=== PATIENT | male | born 1980 | race African-American/Black ===

== ENCOUNTER 2017-07-23 13:33 | Inpatient (IN) ==
[2017-07-23] MEDS ORDERED: DIPH/TET/ACEL PERT BOOSTER VACCINE 0.5 ML VIAL IM ONE ×2 (13:42→14:17)
[2017-07-23] MEDS ORDERED: HYDROmorphone 2 MG/1 ML VIAL IV STA (13:44)
[2017-07-23] MEDS ORDERED: ONDANSETRON 4 MG/2 ML VIAL IV STA (13:44)
[2017-07-23 14:07] LABS: Basophils # 0.1 10*3/uL (0.0-0.2); Basophils % 0.3 % (0.0-0.8); Eosinophils % 0.2 % (0.00-10.9); Hematocrit 42.9 VOL% (42.0-52.0); Immature Granulocytes % 0.5 %; Immature Granulocytes Absolute 0.07 #; Lymphocytes # 1.5 10*3/uL (1.4-4.0); Mean Corpuscular HGB Conc 32.6 GM/DL (32-36); Mean Corpuscular Hemoglobin 29 PG (27-34); Mean Corpuscular Volume 89.9 FL (87-102); Mean Platelet Volume 9.8 FL (9.6-12.0); Monocytes # 0.8 10*3/uL (0.11-0.8); Monocytes % 5.4 % (1.7-12.7); Neutrophils # 12.8 10*3/uL (1.4-7.4); Neutrophils % 83.6 % (38.7-73.9); Platelet Count 228 T/CUMM (130-400); Red Blood Count 4.77 MC/CUMM (3.8-5.5); Red Cell Distribution Width 12.7 % (9.3-17.3); White Blood Count 15.3 T/CUMM (4-12)
[2017-07-23] MEDS ORDERED: LACTATED RINGERS 1,000 ML IV ONE ×2 (14:15→19:02)
[2017-07-23 14:17] LABS: PT Patient Result 10.7 SECS; Partial Thromboplastin Time 23.5 SECS (0-40)
[2017-07-23] MEDS ORDERED: ONDANSETRON 4 MG/2 ML VIAL ONE ×2 (14:17→19:01)
[2017-07-23] MEDS ORDERED: HYDROmorphone 2 MG/1 ML VIAL ONE (14:17)
[2017-07-23] MEDS ORDERED: ceFAZolin 1,000 MG VIAL ONE ×3 (14:17→16:16)
[2017-07-23 14:25] LABS: Alanine Aminotransferase 19 U/L (16-61); Albumin 3.9 G/DL (3.4-5.0); Alkaline Phosphatase 56 U/L (45-117); Amylase 31 U/L (25-115); Aspartate Amino Transferase 17 U/L (0-37); Bilirubin,Total < 0.39 MG/DL (0.2-1.0); Blood Urea Nitrogen 13 MG/DL (7-18); Calcium 8.6 MG/DL (8.5-10.1); Glucose 128 MG/DL (74-106); Lactic Acid 1.9 MMOL/L (0.4-2.0); Osmolality,Calculated 280.4 MOS/KG (273-304); Potassium 3.4 MMOL/L (3.5-5.1); Sodium 140 MMOL/L (136-145); Total Protein 7.1 G/DL (6.4-8.3)
[2017-07-23 14:32] LABS: ABG Base Excess 3.2 MMOL/L (-2.5-2.5); ABG HCO3 27.2 MMOL/L (20-26); ABG Oxygen Saturation 96.3 % (95-100); ABG PCO2 50.6 MM HG (35-48); ABG PH 7.375 (7.35-7.45); ABG PO2 85.3 MM HG (80-95); ABG TCO2 25.5 MMOL/L (23-27)
[2017-07-23 14:39] LABS: Apearance,Urine CLEAR (Clear); Bacteria,Urine Occasional /HPF (Few); Bilirubin,Urine Negative (Negative); Blood, Urine Negative (Negative); Glucose,Urine (UA) Negative (Negative); Ketones,Urine 5 mg/dL (Negative); Mucus,Urine Occasional /LPF (Occasional); Nitrite,Urine Negative (Negative); Protein,Urine 30 MG/DL; RBC,Urine <1 /HPF (0-4); Sperm,Urine Occasional /HPF (Negative); Squamous Epithelial Cell,Urine Occasional /HPF (0-10); Urine Color Yellow (Yellow); Urine Specific Gravity 1.016 (1.001-1.035); Urine Urobilinogen < 2.0 EU/DL (0.2-1.0); WBC,Urine 1 /HPF (0-6)
[2017-07-23 15:32] LABS: Barbiturates Screen,Urine Negative (Negative); Benzodiazepines Screen,Urine Negative (Negative); Cannabinoid Screen,Urine Negative (Negative); Opiate Screen,Urine Negative (Negative); Phencyclidine Screen,Urine Negative (Negative)
[2017-07-23] MEDS ORDERED: BACITRACIN OINT 0.9 GM PACK TOP ONE ×2 (15:43→17:55)
[2017-07-23] MEDS ORDERED: MAGNESIUM HYDROXIDE SUSP 30 ML UDCUP PO PRN (16:36)
[2017-07-23] MEDS ORDERED: diphenhydrAMINE CAP 25 MG CAPSULE PO PRN (16:36)
[2017-07-23] MEDS ORDERED: MORPHINE 2 MG/1 ML SYRINGE IV PRN ×2 (16:36)
[2017-07-23] MEDS ORDERED: POTASSIUM CHLORIDE INJ 40 MEQ in DEXTROSE 5% LACTATED RINGERS 1,000 ML IV SCH (17:00)
[2017-07-23] MEDS ORDERED: LACTATED RINGERS 1,000 ML IV SCH (17:00)
[2017-07-23] MEDS ORDERED: PROPOFOL 200 MG/20 ML VIAL IV ONE (19:00)
[2017-07-23] MEDS ORDERED: ESMOLOL 100 MG/10 ML VIAL IV ONE (19:01)
[2017-07-23] MEDS ORDERED: NEOSTIGMINE 10 MG/10 ML VIAL ONE (19:01)
[2017-07-23] MEDS ORDERED: MIDAZOLAM 2 MG/2 ML VIAL ONE (19:01)
[2017-07-23] MEDS ORDERED: fentaNYL 100 MCG/2 ML VIAL ONE (19:01)
[2017-07-23] MEDS ORDERED: SEVOFLURANE 1 UNIT/15 MINUTE INH ONE (19:01)
[2017-07-23] MEDS ORDERED: GLYCOPYRROLATE 0.4 MG/2 ML VIAL ONE (19:01)
[2017-07-23] MEDS ORDERED: SUCCINYLCHOLINE 200 MG/10 ML VIAL ONE (19:01)
[2017-07-23] MEDS ORDERED: ROCURONIUM 100 MG/10 ML VIAL IV ONE (19:02)
[2017-07-23] MEDS: DOCUSATE SODIUM 100 MG CAPSULE PO SCH (21:55)
[2017-07-23] MEDS: ceFAZolin 2,000 MG in PREMIX 1 EACH IV SCH (21:55)
[2017-07-23] MEDS: DEXT 5% LACT RING KCL 20 MEQ 20 MEQ/1,000 ML BAG IV SCH (23:35)
[2017-07-24] MEDS: KETOROLAC 30 MG/1 ML VIAL IV SCH ×4 (02:51→10:34)
[2017-07-24] MEDS: ceFAZolin 2,000 MG in PREMIX 1 EACH IV SCH ×3 (04:23→20:19)
[2017-07-24 05:13] LABS: Basophils % 0.2 % (0.0-0.8); Hematocrit 35.5 VOL% (42.0-52.0); Hemoglobin 12.1 GM/DL (14.0-18.0); Immature Granulocytes % 0.2 %; Immature Granulocytes Absolute 0.02 #; Lymphocytes # 1.4 10*3/uL (1.4-4.0); Lymphocytes % 13.4 % (21.2-54.2); Mean Corpuscular HGB Conc 34.1 GM/DL (32-36); Mean Corpuscular Hemoglobin 30 PG (27-34); Mean Corpuscular Volume 86.8 FL (87-102); Mean Platelet Volume 9.7 FL (9.6-12.0); Monocytes # 1.1 10*3/uL (0.11-0.8); Neutrophils # 8.2 10*3/uL (1.4-7.4); Neutrophils % 76.2 % (38.7-73.9); Platelet Count 203 T/CUMM (130-400); Red Blood Count 4.09 MC/CUMM (3.8-5.5); Red Cell Distribution Width 12.8 % (9.3-17.3); White Blood Count 10.7 T/CUMM (4-12)
[2017-07-24 05:48] LABS: Osmolality,Calculated 278.4 MOS/KG (273-304); Potassium 3.9 MMOL/L (3.5-5.1)
[2017-07-24] MEDS: DEXT 5% LACT RING KCL 20 MEQ 20 MEQ/1,000 ML BAG IV SCH (08:24)
[2017-07-24] MEDS: DOCUSATE SODIUM 100 MG CAPSULE PO SCH ×2 (09:16→20:28)
[2017-07-24] MEDS: HALOPERIDOL 5 MG TABLET PO SCH ×2 (16:18→20:29)
[2017-07-24] MEDS: busPIRone 5 MG TABLET PO SCH ×2 (16:18→20:29)
[2017-07-24] MEDS ORDERED: ACETAMINOPHEN 325 MG TABLET PO PRN (16:38)
[2017-07-24] MEDS: risperiDONE 1 MG TABLET PO SCH (20:28)
[2017-07-24] MEDS: DIVALPROEX ER 250 MG TABLET PO SCH (20:28)
[2017-07-24] MEDS: PRAZOSIN 1 MG CAPSULE PO SCH (20:28)
[2017-07-24] MEDS: traZODone 50 MG TABLET PO SCH (20:29)
[2017-07-25 03:31] LABS: Basophils % 0.2 % (0.0-0.8); Eosinophils % 0.5 % (0.00-10.9); Hematocrit 31.4 VOL% (42.0-52.0); Hemoglobin 10.5 GM/DL (14.0-18.0); Immature Granulocytes % 0.4 %; Immature Granulocytes Absolute 0.03 #; Lymphocytes # 2.5 10*3/uL (1.4-4.0); Lymphocytes % 29.5 % (21.2-54.2); Mean Corpuscular HGB Conc 33.4 GM/DL (32-36); Mean Corpuscular Hemoglobin 29 PG (27-34); Monocytes # 0.7 10*3/uL (0.11-0.8); Monocytes % 8.8 % (1.7-12.7); Neutrophils # 5.1 10*3/uL (1.4-7.4); Neutrophils % 60.6 % (38.7-73.9); Platelet Count 165 T/CUMM (130-400); Red Blood Count 3.57 MC/CUMM (3.8-5.5); Red Cell Distribution Width 13.2 % (9.3-17.3); White Blood Count 8.4 T/CUMM (4-12)
[2017-07-25] MEDS: ceFAZolin 2,000 MG in PREMIX 1 EACH IV SCH ×2 (04:30→14:40)
[2017-07-25] MEDS: VALSARTAN 160 MG TABLET PO SCH (10:44)
[2017-07-25] MEDS: METOPROLOL SUCCINATE XL 50 MG TABLET PO SCH (10:44)
[2017-07-25] MEDS: DIVALPROEX ER 250 MG TABLET PO SCH ×2 (10:44→20:42)
[2017-07-25] MEDS: HALOPERIDOL 5 MG TABLET PO SCH ×3 (10:44→20:42)
[2017-07-25] MEDS: DOCUSATE SODIUM 100 MG CAPSULE PO SCH ×2 (10:45→20:42)
[2017-07-25] MEDS: busPIRone 5 MG TABLET PO SCH ×3 (10:45→20:42)
[2017-07-25] MEDS: ASPIRIN 325 MG TABLET PO SCH (10:45)
[2017-07-25] MEDS: risperiDONE 1 MG TABLET PO SCH (20:42)
[2017-07-25] MEDS: PRAZOSIN 1 MG CAPSULE PO SCH (20:42)
[2017-07-25] MEDS: traZODone 50 MG TABLET PO SCH (20:42)
[2017-07-26 06:11] LABS: Basophils # 0.1 10*3/uL (0.0-0.2); Basophils % 0.7 % (0.0-0.8); Eosinophils # 0.2 10*3/uL (0.0-0.87); Eosinophils % 2.7 % (0.00-10.9); Hematocrit 31.4 VOL% (42.0-52.0); Hemoglobin 10.6 GM/DL (14.0-18.0); Immature Granulocytes % 0.5 %; Immature Granulocytes Absolute 0.04 #; Lymphocytes # 1.7 10*3/uL (1.4-4.0); Lymphocytes % 23.7 % (21.2-54.2); Mean Corpuscular HGB Conc 33.8 GM/DL (32-36); Mean Corpuscular Hemoglobin 30 PG (27-34); Mean Corpuscular Volume 87.7 FL (87-102); Mean Platelet Volume 10.5 FL (9.6-12.0); Monocytes # 0.8 10*3/uL (0.11-0.8); Monocytes % 10.4 % (1.7-12.7); Neutrophils # 4.5 10*3/uL (1.4-7.4); Platelet Count 182 T/CUMM (130-400); Red Blood Count 3.58 MC/CUMM (3.8-5.5); Red Cell Distribution Width 12.9 % (9.3-17.3); White Blood Count 7.3 T/CUMM (4-12)
[2017-07-26] MEDS: HALOPERIDOL 5 MG TABLET PO SCH (10:34)
[2017-07-26] MEDS: DIVALPROEX ER 250 MG TABLET PO SCH (10:34)
[2017-07-26] MEDS: DOCUSATE SODIUM 100 MG CAPSULE PO SCH (10:34)
[2017-07-26] MEDS: ASPIRIN 325 MG TABLET PO SCH (10:35)
[2017-07-26] MEDS: VALSARTAN 160 MG TABLET PO SCH (10:35)
[2017-07-26] MEDS: busPIRone 5 MG TABLET PO SCH (10:35)
[2017-07-26] MEDS: METOPROLOL SUCCINATE XL 50 MG TABLET PO SCH (10:35)
[2017-07-26 12:25] VITALS: BP 135/90
== END 2017-07-26 14:01 | disposition swing bed (61) | DRG 481 ==
LOC: N.ED 13:33 → N.EDINP 16:14 → N.3E 19:47
PROVIDERS: ADMIT Orthopaedic Surgery; ATTEND Orthopaedic Surgery